=== PATIENT | female | born 1990 | race Two or more races ===

== ENCOUNTER 2020-11-09 11:08 | Emergency (ER) | payer OTHER ==
[~2020-11-09] VITALS: Ht 154.9 cm; Wt 81.8 kg
[2020-11-09 11:10] VITALS: BP 124/69
[2020-11-09] MEDS ORDERED: INSU100V SQ (11:45)
[2020-11-09] MEDS ORDERED: INSLAN SQ (11:45)
[2020-11-09] MEDS ORDERED: CHOL100044 PO (11:50)
[2020-11-09] MEDS ORDERED: ATOR20TA65 PO (11:50)
[2020-11-09] MEDS ORDERED: METF-446 PO (11:50)
[2020-11-09] MEDS ORDERED: DOCU100C33 PO (11:50)
== END 2020-11-09 13:19 | disposition home or self-care (01) ==
LOC: EMS 11:22
DX: B00.9 Herpesviral infection, unspecified (principal); E11.9 Type 2 diabetes mellitus without complications; Z79.899 Other long term (current) drug therapy; Z79.4 Long term (current) use of insulin
CPT/HCPCS: 82962; 99283

== ENCOUNTER 2023-10-30 11:25 | Emergency (ER) | payer OTHER ==
[~2023-10-30] VITALS: Ht 160 cm; Wt 80.5 kg
[~2023-10-30 11:25] MED LIST: ATOR20TA65 PO; CHOL25TA4 PO; DOCU100C33 PO; INSLAN SQ; INSU100V SQ; METF-446 PO
[2023-10-30 12:04] VITALS: BP 119/70; PULSE 72; RESP 18; TEMP 98
[2023-10-30] MEDS ORDERED: CITA-108 PO (12:29)
[2023-10-30] MEDS ORDERED: ATOR40TA71 PO (12:29)
[2023-10-30] MEDS ORDERED: SEMA1PEN3 SQ (12:29)
[2023-10-30 12:39] LABS: BASOPHILS % (AUTO) 0.9 % (0.0-2.0); EOSINOPHILS % (AUTO) 3.5 % (1.0-6.0); HEMATOCRIT 43.6 % (36-46); HEMOGLOBIN 14.5 g/dL (12.0-16.0); LYMPHOCYTES # (AUTO) 2.8 K/uL (1.0-4.8); LYMPHOCYTES % (AUTO) 34.2 % (22.0-44.0); MEAN CORPUSCULAR HEMOGLOBIN 28.6 pg (26.0-34.0); MEAN CORPUSCULAR HGB CONC 33.3 G/dL (31.0-37.0); MEAN CORPUSCULAR VOLUME 86 fL (80-100); MONOCYTES # (AUTO) 0.4 K/uL (0.1-1.0); MONOCYTES % (AUTO) 4.5 % (2.0-9.0); NEUTROPHILS # (AUTO) 4.6 K/uL (1.8-7.7); NEUTROPHILS % (AUTO) 56.9 % (40.0-70.0); PLATELET COUNT (AUTO) 276 K/uL (150-450); RED BLOOD CELL COUNT(AUTO) 5.06 MIL/uL (4.00-5.20); RED CELL DISTRIBUTION WIDTH 13.7 % (11.5-14.5); WHITE BLOOD COUNT (AUTO) 8.1 K/uL (4.5-11.0)
[2023-10-30] MEDS: MAG HYDROX/ALUMINUM HYD/SIMETH 30 ML SUSPENSION UDCUP PO ONE (12:41)
[2023-10-30] MEDS: FAMOTIDINE 20 MG TABLET PO ONE (12:42)
[2023-10-30] MEDS: ACETAMINOPHEN 500 MG TABLET PO ONE (12:42)
[2023-10-30 12:56] LABS: ANION GAP 6 mmol/L (8-16); CALCIUM, TOTAL 9.3 mg/dL (8.8-10.5); CARBON DIOXIDE 33 mmol/L (22-29); CHLORIDE 98 mmol/L (98-107); CREATININE 0.73 mg/dL (0.60-1.30); GLOMERULAR FILTR. RATE CALC > 60 mL/min (>60); GLUCOSE,RANDOM 137 mg/dL (70-110); POTASSIUM 4.3 mmol/L (3.5-5.1); SODIUM SERUM 136 mmol/L (136-145); UREA NITROGEN, BLOOD 12 mg/dL (7-18)
[2023-10-30 12:57] LABS: TROPONIN I-HIGH SENSITIVITY Less Than 4 ng/L (<51)
[2023-10-30 13:00] LABS: B-TYPE NATRIURETIC PEPTIDE 7 pg/mL (0-100)
[2023-10-30 13:02] LABS: ALANINE AMINOTRANSFERASE 40 U/L (12-78); ALBUMIN 3.7 g/dL (3.4-5.0); ALKALINE PHOSPHATASE 148 U/L (46-116); ASPARTATE AMINOTRANSFERASE 23 U/L (15-37); BILIRUBIN,TOTAL 0.2 mg/dL (0.1-1.0); TOTAL PROTEIN, SERUM 8.3 g/dL (6.4-8.2)
== END 2023-10-30 14:29 | disposition home or self-care (01) ==
LOC: EMS 12:35
DX: R07.9 Chest pain, unspecified (principal); E11.9 Type 2 diabetes mellitus without complications; Z98.890 Other specified postprocedural states
CPT/HCPCS: 71045; 80048; 80076; 83880; 84484; 84703; 85025; 85379; 93005; 99285; 36415-L1; 36415-TC